=== PATIENT | male | born 1975 | race Two or more races ===

== ENCOUNTER 2016-10-12 15:09 | Emergency (ER) | payer SELFPAY ==
[2016-10-12] MEDS ORDERED: NITROGLYCERIN 0.4 MG TAB.SUBL SL ONE (15:18)
[2016-10-12 15:28] LABS: BASOPHILS % 0.5 (0.0-1.5); EOSINOPHILS % 1.1 % (0.0-6.8); LYMPHOCYTES # 1.1 # k/uL (0.6-4.0); MEAN CORPUSCULAR HEMOGLOBIN 29.3 pg (28.0-34.0); MONOCYTES # 0.3 # k/uL (0.0-0.9); MONOCYTES % 4.5 % (0.0-11.0); NEUTROPHILS # 5.3 # k/uL (1.4-7.7)
[2016-10-12 15:47] LABS: eGFR (African) > 60; eGFR (Non-African) > 60
--- NOTE | 2016-10-12 16:34 | ED Physician Documentation ---
Chest Pain - HISTORIAN Historian: patient - HPI Stated Complaint: Chest Pressure Chief Complaint: Chest Pain Timing: sudden onset Worsened By: nothing Relieved By: nothing Further Comments: yes (41 year old male patient presents with complaints of chest pain. Patient states he was pushing his cart in [facility] when he had sudden onset of CP with palpitations. Patient states he walked to the pharmacy to check his BP, states "my blood pressure was high", pharmacist gave patient 4 baby aspirin. Now Rates pain 8/10. Patient reports the pain stopped as he walked into the room in the ER.) - ROS CONST: none MS/LYMPH: none GI/: none EYES/ENT: none SKIN/ENDO: none NEURO/PSYCH: none - PAST HX [place] risk factors: hypertension DVT/PE Risk Factors: none TAD/AAA risk factors: none Neuro deficit: none GI disease: none Lung disease: none Surgeries/Procedures: none - SOCIAL HX Smoking History: non-smoker - VITAL SIGNS Vital Signs: Vital Signs Temp Pulse Resp BP Pulse Ox 98 F 70 18 183/107 99 10/12/16 15:10 10/12/16 15:48 10/12/16 15:10 10/12/16 15:10 10/12/16 15:48 - REVIEWED ASSESSMENTS Nursing Assessment Reviewed: Yes Vitals Reviewed: Yes <CAROLYN CALLOWAY - Last Filed: 10/12/16 16:29> - HISTORIAN Historian: patient - HPI Timing: sudden onset Last known Well Date: 10/12/16 Last Known Well Time: 14:25 Worsened By: nothing Relieved By: other (stopped after 25 minutes, when he walked into ER exam room) - ROS CONST: none MS/LYMPH: none GI/: none EYES/ENT: none SKIN/ENDO: none - PAST HX IL risk factors: hypertension DVT/PE Risk Factors: none TAD/AAA risk factors: none Neuro deficit: none GI disease: none Lung disease: none Surgeries/Procedures: none - SOCIAL HX Smoking History: non-smoker - FAMILY HX Family HX: CAD over 55 (uncle and GF) - VITAL SIGNS Vital Signs: Vital Signs Temp Pulse Resp BP Pulse Ox 98 F 71 18 183/107 99 10/12/16 15:10 10/12/16 18:30 10/12/16 15:10 10/12/16 15:10 10/12/16 18:30 - REVIEWED ASSESSMENTS Nursing Assessment Reviewed: Yes Vitals Reviewed: Yes <SHANIKA DURÁN KEISHA - Last Filed: 10/12/16 19:50> - PAST HX Allergies/Adverse Reactions: Allergies Allergy/AdvReac Type Severity Reaction Status Date / Time No Known Allergies Allergy Unverified 10/12/16 15:25 Home Medications: Ambulatory Orders Medication Instructions Recorded NK [NK] 10/12/16 Progress - Progress Progress: Discussed plan of care with patient - EKG/XRAY/CT EKG: rhythm (SR, rate 73, V2 with 1mm elevation) <CAROLYN CALLOWAY - Last Filed: 10/12/16 16:29> - Progress Progress: 1930, no pain,. EKG with minimal changes, but troponin remains stable at <0.03 four hours after pain began. <SHANIKA DURÁN - Last Filed: 10/12/16 19:50> ED Results Lab/Radiology - Lab Results Lab Results: Lab Results 10/12/16 10/12/16 10/12/16 15:25 15:25 15:25 WBC 6.90 K/ul K/ul (4.00-12.00) RBC 6.04 M/ul H M/ul (3.90-5.20) Hgb 17.7 g/dL g/dL (12.0-18.0) Hct 51.0 % % (37.0-53.0) MCV 84.5 fl fl (80.0-100.0) MCH 29.3 pg pg (28.0-34.0) MCHC 34.7 g/dL g/dL (30.0-36.0) RDW 14.3 % % (11.3-14.3) Plt Count 232 K/mm3 K/mm3 (130-400) Neut % (Auto) 76.1 % % (39.0-79.0) Lymph % (Auto) 16.3 % % (16.0-50.0) Navarro % (Auto) 4.5 % % (0.0-11.0) Eos % (Auto) 1.1 % % (0.0-6.8) Baso % (Auto) 0.5 (0.0-1.5) Neut # 5.3 # k/uL # k/uL (1.4-7.7) Lymph # 1.1 # k/uL # k/uL (0.6-4.0) Navarro # 0.3 # k/uL # k/uL (0.0-0.9) Eos # 0.1 # k/uL # k/uL (0.0-0.6) Baso # 0.0 # k/uL # k/uL (0.0-0.5) Reactive Lymphs % 1.4 % % (0.0-5.0) Reactive Lymphs # 0.1 # k/uL # k/uL (0.0-0.8) Sodium 138 mmol/L mmol/L (136-145) Potassium 3.3 mmol/L L mmol/L (3.5-5.0) Chloride 101 mmol/L mmol/L (98-110) Carbon Dioxide 31 mmol/L mmol/L (20-32) BUN 11 mg/dL mg/dL (10-26) Creatinine 0.8 mg/dL mg/dL (0.4-1.5) Estimated Creat Clear 185 Est GFR ( Amer) > 60 (60 - ) Est GFR (Non-Af Amer) > 60 (60 - ) Glucose 99 mg/dL mg/dL (70-99) Calcium 9.6 mg/dL mg/dL (8.5-10.5) Total Bilirubin 0.8 mg/dL mg/dL (0.2-1.2) AST 26 U/L U/L (0-41) ALT 29 U/L U/L (0-45) Alkaline Phosphatase 92 U/L U/L (46-116) Creatine Kinase 121 U/L U/L (0-225) CK-MB (CK-2) 2.1 ng/mL ng/mL (0.0-5.6) Troponin I < 0.03 ng/mL L ng/mL (0.03-0.06) Total Protein 8.1 g/dL g/dL (6.0-8.5) Albumin 5.1 g/dL g/dL (3.0-5.5) - Radiology Radiology Impressions: Ap portable upright radiographs of the chest Clinical history: Chest pain Technique: anterior /posterior portable upright Findings: The lung gilbert are clear. Left heart appears slightly enlarged. The mediastinal structures and hilar structures are normal.. The bony thorax is unremarkable. No pneumothorax or pleural effusion is seen. Impression: No acute pulmonary disease Borderline cardiomegaly Electronically signed on Oct 12, 2016 3:35:28 PM CDT by: Amandeep Newberry - Orders Orders: ED Orders Category Date Time Status Continuous EKG monitoring Q30M Care 10/12/16 15:18 Active Continuous Pulse Oximetry Q30M Care 10/12/16 15:[address] Saline Lock/IV NOW Care 10/12/16 15:18 Active CHEST 1 VIEW [RAD] Stat Exams 10/12/16 15:18 Ordered CBC/PLATELET/DIFF Stat Lab 10/12/16 15:25 Completed CKMB Stat Lab 10/12/16 15:25 Completed CKMB Stat Lab 10/12/16 19:00 Ordered CMP Stat Lab 10/12/16 15:25 Completed CREATINE KINASE Stat Lab 10/12/16 15:25 Completed CREATINE KINASE Stat Lab 10/12/16 19:00 Ordered TROPONIN I (cTnI) Stat Lab 10/12/16 15:25 Completed TROPONIN I (cTnI) Stat Lab 10/12/16 19:00 Ordered Nitroglycerin [Nitroquick] Med 10/12/16 15:18 Discontinued 0.4 mg SL NOW ONE Oxygen Daily Oxygen 10/12/16 15:30 Ordered EKG WITH COMPARISON Stat Ther 10/12/16 15:18 Ordered <CAROLYN CALLOWAY - Last Filed: 10/12/16 16:29> - Lab Results Lab Results: Lab Results 10/12/16 10/12/16 10/12/16 18:50 18:50 15:25 WBC RBC Hgb Hct MCV MCH MCHC RDW Plt Count Neut % (Auto) Lymph % (Auto) Navarro % (Auto) Eos % (Auto) Baso % (Auto) Neut # Lymph # Navarro # Eos # Baso # Reactive Lymphs % Reactive Lymphs # Sodium Potassium Chloride Carbon Dioxide BUN Creatinine Estimated Creat Clear Est GFR ( Amer) Est GFR (Non-Af Amer) Glucose Calcium Total Bilirubin AST ALT Alkaline Phosphatase Creatine Kinase 106 U/L U/L (0-225) CK-MB (CK-2) 1.8 ng/mL ng/mL 2.1 ng/mL ng/mL (0.0-5.6) (0.0-5.6) Troponin I < 0.03 ng/mL L ng/mL < 0.03 ng/mL L ng/mL (0.03-0.06) (0.03-0.06) Total Protein Albumin 10/12/16 10/12/16 15:25 15:25 WBC 6.90 K/ul K/ul (4.00-12.00) RBC 6.04 M/ul H M/ul (3.90-5.20) Hgb 17.7 g/dL g/dL (12.0-18.0) Hct 51.0 % % (37.0-53.0) MCV 84.5 fl fl (80.0-100.0) MCH 29.3 pg pg (28.0-34.0) MCHC 34.7 g/dL g/dL (30.0-36.0) RDW 14.3 % % (11.3-14.3) Plt Count 232 K/mm3 K/mm3 (130-400) Neut % (Auto) 76.1 % % (39.0-79.0) Lymph % (Auto) 16.3 % % (16.0-50.0) Navarro % (Auto) 4.5 % % (0.0-11.0) Eos % (Auto) 1.1 % % (0.0-6.8) Baso % (Auto) 0.5 (0.0-1.5) Neut # 5.3 # k/uL # k/uL (1.4-7.7) Lymph # 1.1 # k/uL # k/uL (0.6-4.0) Navarro # 0.3 # k/uL # k/uL (0.0-0.9) Eos # 0.1 # k/uL # k/uL (0.0-0.6) Baso # 0.0 # k/uL # k/uL (0.0-0.5) Reactive Lymphs % 1.4 % % (0.0-5.0) Reactive Lymphs # 0.1 # k/uL # k/uL (0.0-0.8) Sodium 138 mmol/L mmol/L (136-145) Potassium 3.3 mmol/L L mmol/L (3.5-5.0) Chloride 101 mmol/L mmol/L (98-110) Carbon Dioxide 31 mmol/L mmol/L (20-32) BUN 11 mg/dL mg/dL (10-26) Creatinine 0.8 mg/dL mg/dL (0.4-1.5) Estimated Creat Clear 185 Est GFR ( Amer) > 60 (60 - ) Est GFR (Non-Af Amer) > 60 (60 - ) Glucose 99 mg/dL mg/dL (70-99) Calcium 9.6 mg/dL mg/dL (8.5-10.5) Total Bilirubin 0.8 mg/dL mg/dL (0.2-1.2) AST 26 U/L U/L (0-41) ALT 29 U/L U/L (0-45) Alkaline Phosphatase 92 U/L U/L (46-116) Creatine Kinase 121 U/L U/L (0-225) CK-MB (CK-2) Troponin I Total Protein 8.1 g/dL g/dL (6.0-8.5) Albumin 5.1 g/dL g/dL (3.0-5.5) - Orders Orders: ED Orders Category Date Time Status Continuous EKG monitoring Q30M Care 10/12/16 15:18 Active Continuous Pulse Oximetry Q30M Care 10/12/16 15:[address] Saline Lock/IV NOW Care 10/12/16 15:18 Active CHEST 1 VIEW [RAD] Stat Exams 10/12/16 15:18 Ordered CBC/PLATELET/DIFF Stat Lab 10/12/16 15:25 Completed CKMB Stat Lab 10/12/16 15:25 Completed CKMB Stat Lab 10/12/16 18:50 Completed CMP Stat Lab 10/12/16 15:25 Completed CREATINE KINASE Stat Lab 10/12/16 15:25 Completed CREATINE KINASE Stat Lab 10/12/16 18:50 Completed TROPONIN I (cTnI) Stat Lab 10/12/16 15:25 Completed TROPONIN I (cTnI) Stat Lab 10/12/16 18:50 Completed Nitroglycerin [Nitroquick] Med 10/12/16 15:18 Discontinued 0.4 mg SL NOW ONE Oxygen Daily Oxygen 10/12/16 15:30 Ordered EKG WITH COMPARISON Stat Ther 10/12/16 15:18 Ordered EKG WITH COMPARISON Stat Ther 10/12/16 18:33 Ordered <SHANIKA DURÁN - Last Filed: 10/12/16 19:50> Chest Pain Physical Exam - EXAM General Appearance: mild distress, anxious EENT: eye inspection normal, ENT inspection normal, pharynx normal, no signs of dehydration, GLADIS, no nystagmus, TM's nml Respiratory: no resp. distress, chest non-tender, nml breath sounds CVS: reg. rate & rhythm, no murmur, no gallop, no friction rub, pulses full, pulses equal Abdomen: soft, no organomegaly, normal bowel sounds, no abdominal bruit, no distension Skin: normal color, warm/dry, NR, INT, DR Extremities: non-tender, normal range of motion, no evidence of injury, no edema , J, [employer]GETABLE [employer] Neuro: oriented X3, CN's nml as tested, motor nml, sensation nml, mood/affect nml <CAROLYN CALLOWAY - Last Filed: 10/12/16 16:29> Discharge <CAROLYN CALLOWAY - Last Filed: 10/12/16 16:29> Decision to Admit: NO Decision Time: 19:40 <SHANIKA DURÁN - Last Filed: 10/12/16 19:50> Clincal Impression: Chest pain Additional Instructions: Return to the ER immediately with any chest pain, difficulty breathing or heart racing. Make an appointment to establish care with a primary provider. Home Medications: Ambulatory Orders NK [NK] 10/12/16 Condition: Good Disposition: 01 HOME, SELF-CARE
[2016-10-12 20:15] VITALS: BP 132/81
--- NOTE | 2016-10-15 18:29 | Diagnostic Imaging Report ---
CAROLYN CALLOWAY (FAY) - ER~ [facility] [id number] [facility].[address] [address] ~ ~ ~ ~ Report Submission Date: Oct 12, 2016 3:35:28 PM CDT Patient ~ Study Name: ROSALIND OLIVER ~ Date: Oct 12, 2016 3:25:18 PM CDT ~ Modality Type: CR Gender: M ~ Description: CHEST : 73 ~ Institution: [facility] Physician: CAROLYN CALLOWAY) - ER ~ ~ ~ ~ Ap portable upright radiographs of the chest Clinical history: Chest pain Technique: anterior /posterior portable upright Findings: The lung gilbert are clear. Left heart appears slightly enlarged. The mediastinal structures and hilar structures are normal.. The bony thorax is unremarkable. No pneumothorax or pleural effusion is seen. Impression: No acute pulmonary disease Borderline cardiomegaly ~ Electronically signed on Oct 12, 2016 3:35:28 PM CDT by: Amandeep MEAD
== END 2016-10-12 19:55 | disposition home or self-care (01) ==
LOC: ED 15:09
DX: R07.89 Other chest pain (principal)
CPT/HCPCS: 71010; 80053; 82550; 82553; 84484; 85025; 99283; 99284; S1016

== ENCOUNTER 2017-05-11 17:18 | Emergency (ER) | payer SELFPAY ==
[2017-05-11] MEDS ORDERED: LORazepam 2 MG/ML VIAL IVP ONE (17:35)
[2017-05-11] MEDS ORDERED: ASPIRIN 325 MG TABLET PO ONE (17:36)
[2017-05-11] MEDS ORDERED: ASPIRIN 81 MG CHEW TAB PO ONE ×2 (17:36→17:41)
--- NOTE | 2017-05-11 17:46 | ED Physician Documentation ---
Chest Pain - HISTORIAN Historian: patient, friend - HPI Chief Complaint: Chest Pain Additional Information: lt uipper near mid sternal chest pain onset appprox 1 hr ago while driving. 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) MS/LYMPH: none GI/: none EYES/ENT: none SKIN/ENDO: none NEURO/PSYCH: anxiety - PAST HX NH risk factors: hypertension Lung disease: none Surgeries/Procedures: cholecysectomy Allergies/Adverse Reactions: Allergies Allergy/AdvReac Type Severity Reaction Status Date / Time No Known Allergies Allergy Verified 05/11/17 17:59 Home Medications: Ambulatory Orders Medication Instructions Recorded NK [NK] 10/12/16 - SOCIAL HX Smoking History: non-smoker Alcohol Use: none Drug Use: none - FAMILY HX Family HX: denies: CAD under 55 - VITAL SIGNS Vital Signs: Vital Signs Temp Pulse Resp BP Pulse Ox 132/81 10/12/16 20:05 - REVIEWED ASSESSMENTS Nursing Assessment Reviewed: Yes Vitals Reviewed: Yes ED Results Lab/Radiology - Radiology Radiology Impressions: cxr=wnl - Orders Orders: ED Orders Category Date Time Status Continuous EKG monitoring Q30M Care 05/11/17 17:36 Ordered Continuous EKG monitoring Q30M Care 05/11/17 17:41 Ordered Continuous Pulse Oximetry Q30M Care 05/11/17 17:36 Ordered Continuous Pulse Oximetry Q30M Care 05/11/17 17:[address] IV Lock 1T Care 05/11/17 17:38 Ordered CHEST 1 VIEW [RAD] Stat Exams 05/11/17 17:36 Ordered CHEST 1 VIEW [RAD] Stat Exams 05/11/17 17:41 Ordered CBC/PLATELET/DIFF Routine Lab 05/11/17 17:41 Ordered CMP Routine Lab 05/11/17 17:41 Ordered CREATINE KINASE Routine Lab 05/11/17 17:36 Ordered CREATINE KINASE Routine Lab 05/11/17 17:41 Ordered TROPONIN I (cTnI) Stat Lab 05/11/17 17:41 Ordered Aspirin Med 05/11/17 17:36 Once 324 mg PO NOW ONE Aspirin Med 05/11/17 17:41 Stop Req 324 mg PO NOW ONE Aspirin Med 05/11/17 17:36 Stop Req 325 mg PO NOW ONE LORazepam [Ativan] Med 05/11/17 17:35 Once 1 mg IVP NOW ONE Oxygen Daily Oxygen 05/11/17 17:45 Ordered Oxygen Daily Oxygen 05/11/17 17:45 Ordered EKG WITH COMPARISON Stat Ther 05/11/17 17:36 Ordered EKG WITH COMPARISON Stat Ther 05/11/17 17:41 Ordered Chest Pain Physical Exam - EXAM General Appearance: mild distress, anxious EENT: eye inspection normal Neck: nml inspection, no carotid bruit. No: lymphadenopathy Respiratory: no resp. distress CVS: reg. rate & rhythm, no murmur, no friction rub. No: irregularly irreg. rhythm Abdomen: soft, non-tender Skin: warm/dry, normal color. No: cyanosis, diaphoresis, jaundice, mottled Extremities: non-tender, normal range of motion, no evidence of injury, no edema Neuro: oriented X3, motor nml, sensation nml, mood/affect nml Discharge Clincal Impression: atypical chest pain, hx anxiety Referrals: Primary Doctor,No [Primary Care Provider] - 2 Days Condition: Good Disposition: 01 HOME, SELF-CARE Decision to Admit: NO Decision Time: 18:39
[2017-05-11 17:54] LABS: BASOPHILS % 0.3 (0.0-1.5); MEAN CORPUSCULAR HEMOGLOBIN 30.4 pg (28.0-34.0); MEAN CORPUSCULAR VOLUME 85.2 fl (80.0-100.0); MONOCYTES % 4.2 % (0.0-11.0); NEUTROPHILS # 7.5 # k/uL (1.4-7.7)
[2017-05-11 18:02] LABS: eGFR (African) > 60; eGFR (Non-African) > 60
[2017-05-11 19:02] VITALS: BP 115/65
--- NOTE | 2017-05-11 19:04 | Diagnostic Imaging Report ---
PHYLLIS DOOLEY [facility] [address] [facility].[address] [address] Report Submission Date: May 11, 2017 6:25:43 PM CDT Patient Study Name: ROSALNID OLIVER Date: May 11, 2017 6:14:19 PM CDT Modality Type: CR Gender: M Description: CHEST : 73 Institution: [facility] Physician: PHYLLIS DOOLEY Examination: Portable chest History: Chest discomfort Comparison exam: 12 October 2016 Findings: Single view of the chest demonstrates a normal cardiac and mediastinal silhouette. Lung gilbert without focal infiltrate. No effusion. Osseous structures are appropriate for age. Impression: No acute pulmonary process. Electronically signed on May 11, 2017 6:25:43 PM CDT by: Donald MEAD
== END 2017-05-11 18:55 | disposition home or self-care (01) ==
LOC: ED 17:18
DX: R07.89 Other chest pain (principal)
CPT/HCPCS: 71010; 80053; 82550; 84484; 85025; 85379; J2060; 96374; 99283; S1016

== ENCOUNTER 2019-04-28 09:34 | Emergency (ER) | payer SELFPAY ==
[2019-05-02 14:45] LABS: BASOPHILS % 0.4 % (0.0-1.5); NEUTROPHILS # 4.3 # k/uL (1.4-7.7)
[2019-05-02 14:46] LABS: eGFR (Non-African) > 60
--- NOTE | 2019-05-20 14:14 | Diagnostic Imaging Report ---
JOZEF COOL [facility] [address] [facility] [address], [place]. [address] Report Submission Date: Apr 28, 2019 10:19:24 AM CDT Patient Study Name: ROSALIND GUILLERMO Date: Apr 28, 2019 9:52:37 AM CDT Modality Type: DX Gender: M Description: CHEST 1VIEW : 73 Institution: [facility] Physician: JOZEF COOL HISTORY: 44-year-old male with chest pressure. COMPARISON: None available. TECHNIQUE: Single portable AP view of the chest was performed. FINDINGS: No pneumothorax, consolidative infiltrates, or pulmonary edema. The heart is upper limits of normal in size. IMPRESSION: No acute intrathoracic process. Electronically signed on Apr 28, 2019 10:19:24 AM CDT by: Nick MEAD
== END 2019-04-28 11:51 | disposition home or self-care (01) ==
LOC: ED 09:34
DX: I10 Essential (primary) hypertension (principal)
CPT/HCPCS: 71045; 80053; 82553; 84484; 85025; 93005; 99283; 99284; S1016